=== PATIENT | male | born 1935 | race Caucasian/White ===

== ENCOUNTER → 2016-05-26 | Outpatient (CLI) | payer MEDICARE, BC ==
[~2016-05-26] VITALS: Ht 167.6 cm; Wt 81.8 kg
[~2016-05-26] MED LIST: ALEVE 220MG220 MG PO; ASPIRIN 81M81 MG/TA2 PO; B/P MED; BENICAR 20MG TA20 MG PO; BENICAR PO; CELEBREX; CENTRUM SILVER1 TAB PO; CEPHALEXIN500 M1 PO; DIOVAN 160MG160 MG PO; ENULOSE10 GM/15 M PO; FLUVASTATIN; MUCINEX 60600 MG/TA1 PO; MUCUSRELF400T PO; NAPROXEN 3375 MG/TAB; NORCO 325 MG-7.1 TAB PO; PRAVACHOL 40MG40 MG PO; PRAVASTATIN40 MG PO; PREDNISONE20 MG PO; PREVACID 30MG30 M1 PO; PROAIR HFA0.09 MG/AC IH; VENTOLIN0.09 MG IH; ZITHROMAX Z PA250 MG PO; [UNRECOGNIZED DRUG - OTHER] PO
[2016-05-26 10:04] VITALS: BP 139/90; PULSE 81
[2016-05-26 10:45] VITALS: BP 139/91; PULSE 88
== END ==
LOC: COL.RAD 09:00
DX: M54.17 Radiculopathy, lumbosacral region (principal); M54.9 Dorsalgia, unspecified; M79.605 Pain in left leg; M79.604 Pain in right leg; G89.29 Other chronic pain
CPT/HCPCS: J3301

== ENCOUNTER → 2016-08-25 | Outpatient (CLI) | payer MEDICARE, BC ==
[~2016-08-25] VITALS: Ht 167.6 cm; Wt 82.4 kg
[2016-08-25 09:52] VITALS: BP 141/83; PULSE 75
[2016-08-25 10:55] VITALS: BP 98/52; PULSE 73
[2016-08-25 11:00] VITALS: BP 140/70; PULSE 79
[2016-08-25 11:15] VITALS: BP 134/67; PULSE 74
[2016-08-25 11:30] VITALS: BP 133/72; PULSE 77
[2016-08-25 12:00] VITALS: BP 121/67; PULSE 77
== END ==
LOC: COL.RAD 09:19
DX: M43.8X6 Other specified deforming dorsopathies, lumbar region (principal); E78.00 Pure hypercholesterolemia, unspecified; I10 Essential (primary) hypertension; Z79.899 Other long term (current) drug therapy
CPT/HCPCS: Q9965

== ENCOUNTER → 2016-12-09 | Outpatient (CLI) | payer MEDICARE, BC | LOC: COL.RAD 07:45 → COL.VAS 09:00 | DX: M48.02 Spinal stenosis, cervical region (principal); R53.1 Weakness ==

== ENCOUNTER 2017-03-12 09:45 | Outpatient (RCR) | payer MEDICARE, BC | END 2017-03-15 | disposition still patient (30) | LOC: WSPT | DX: R53.1 Weakness (principal); M54.5 Low back pain; R10.30 Lower abdominal pain, unspecified; M25.552 Pain in left hip; M25.551 Pain in right hip; Z74.09 Other reduced mobility | CPT/HCPCS: G8978-GP; G8979-GP ==

== ENCOUNTER → 2017-03-31 | Outpatient (CLI) | payer MEDICARE, BC | LOC: MHCPAIN 12:25 | DX: G89.29 Other chronic pain (principal); M47.27 Other spondylosis with radiculopathy, lumbosacral region; M96.1 Postlaminectomy syndrome, not elsewhere classified; Z87.891 Personal history of nicotine dependence | CPT/HCPCS: G0463 ==

== ENCOUNTER 2017-04-12 12:30 | Outpatient (RCR) | payer MEDICARE, BC | END 2017-05-12 09:56 | disposition home or self-care (01) | LOC: WSPT 12:30 | DX: M48.061 Spinal stenosis, lumbar region without neurogenic claudication (principal); M62.81 Muscle weakness (generalized) | CPT/HCPCS: G8978-GP; G8979-GP; G8980-GP ==

== ENCOUNTER → 2017-04-22 | Outpatient (CLI) | payer MEDICARE, BC | LOC: MHCPAIN 07:56 | DX: M47.27 Other spondylosis with radiculopathy, lumbosacral region (principal); M99.83 Other biomechanical lesions of lumbar region; M96.1 Postlaminectomy syndrome, not elsewhere classified; Z98.1 Arthrodesis status | CPT/HCPCS: J1100; Q9967 ==

== ENCOUNTER → 2017-05-04 | Outpatient (CLI) | payer MEDICARE, BC | LOC: MHCPAIN 08:50 | DX: G89.29 Other chronic pain (principal); M47.27 Other spondylosis with radiculopathy, lumbosacral region; M53.3 Sacrococcygeal disorders, not elsewhere classified; M96.1 Postlaminectomy syndrome, not elsewhere classified; Z87.891 Personal history of nicotine dependence | CPT/HCPCS: G0463 ==

== ENCOUNTER → 2017-07-05 | Outpatient (CLI) | payer MEDICARE, BC | LOC: MHCPAIN 08:00 | DX: G89.29 Other chronic pain (principal); M47.27 Other spondylosis with radiculopathy, lumbosacral region; M53.3 Sacrococcygeal disorders, not elsewhere classified; M96.1 Postlaminectomy syndrome, not elsewhere classified | CPT/HCPCS: G0463 ==

== ENCOUNTER → 2017-07-22 | Outpatient (CLI) | payer MEDICARE, BC | LOC: MHCPAIN 08:06 | DX: M47.27 Other spondylosis with radiculopathy, lumbosacral region (principal); M48.061 Spinal stenosis, lumbar region without neurogenic claudication; M96.1 Postlaminectomy syndrome, not elsewhere classified | CPT/HCPCS: J1100; Q9967 ==

== ENCOUNTER → 2017-08-23 | Outpatient (CLI) | payer MEDICARE, BC | LOC: MHCPAIN 09:39 | DX: G89.29 Other chronic pain (principal); M47.817 Spondylosis without myelopathy or radiculopathy, lumbosacral region; M54.16 Radiculopathy, lumbar region; M53.3 Sacrococcygeal disorders, not elsewhere classified; M96.1 Postlaminectomy syndrome, not elsewhere classified | CPT/HCPCS: G0463 ==

== ENCOUNTER → 2017-11-17 | Outpatient (CLI) | payer MEDICARE, BC | LOC: MHCPAIN 07:55 | DX: G89.29 Other chronic pain (principal); M47.817 Spondylosis without myelopathy or radiculopathy, lumbosacral region; M54.16 Radiculopathy, lumbar region; M53.3 Sacrococcygeal disorders, not elsewhere classified; M96.1 Postlaminectomy syndrome, not elsewhere classified | CPT/HCPCS: G0463 ==

== ENCOUNTER → 2017-11-29 | Outpatient (CLI) | payer MEDICARE, BC | LOC: MHCPAIN 13:15 | DX: M47.817 Spondylosis without myelopathy or radiculopathy, lumbosacral region (principal); M48.061 Spinal stenosis, lumbar region without neurogenic claudication; M96.1 Postlaminectomy syndrome, not elsewhere classified | CPT/HCPCS: J1100; Q9967 ==

== ENCOUNTER → 2017-12-27 | Outpatient (CLI) | payer MEDICARE, BC | LOC: MHCPAIN 10:04 | DX: G89.29 Other chronic pain (principal); M47.817 Spondylosis without myelopathy or radiculopathy, lumbosacral region; M54.16 Radiculopathy, lumbar region; M53.3 Sacrococcygeal disorders, not elsewhere classified; M96.1 Postlaminectomy syndrome, not elsewhere classified | CPT/HCPCS: G0463 ==

== ENCOUNTER → 2018-02-28 | Outpatient (CLI) | payer MEDICARE, BC | LOC: MHCPAIN 10:07 | DX: G89.29 Other chronic pain (principal); M47.817 Spondylosis without myelopathy or radiculopathy, lumbosacral region; M54.16 Radiculopathy, lumbar region; M53.3 Sacrococcygeal disorders, not elsewhere classified; M96.1 Postlaminectomy syndrome, not elsewhere classified | CPT/HCPCS: G0463 ==

== ENCOUNTER → 2018-03-10 | Outpatient (CLI) | payer MEDICARE, BC | LOC: MHCPAIN 08:08 | DX: M47.817 Spondylosis without myelopathy or radiculopathy, lumbosacral region (principal); M54.16 Radiculopathy, lumbar region | CPT/HCPCS: J1100; Q9967 ==

== ENCOUNTER → 2018-04-11 | Outpatient (CLI) | payer MEDICARE, BC | LOC: MHCPAIN 08:54 | DX: G89.29 Other chronic pain (principal); M47.817 Spondylosis without myelopathy or radiculopathy, lumbosacral region; M54.16 Radiculopathy, lumbar region; M53.3 Sacrococcygeal disorders, not elsewhere classified; M96.1 Postlaminectomy syndrome, not elsewhere classified | CPT/HCPCS: G0463 ==

== ENCOUNTER → 2018-07-11 | Outpatient (CLI) | payer MEDICARE, BC | LOC: MHCPAIN 09:04 | DX: G89.29 Other chronic pain (principal); M47.817 Spondylosis without myelopathy or radiculopathy, lumbosacral region; M54.16 Radiculopathy, lumbar region; M53.3 Sacrococcygeal disorders, not elsewhere classified; M96.1 Postlaminectomy syndrome, not elsewhere classified | CPT/HCPCS: G0463 ==

== ENCOUNTER → 2018-10-12 | Outpatient (CLI) | payer MEDICARE, BC | LOC: MHCPAIN 08:01 | DX: G89.29 Other chronic pain (principal); M47.817 Spondylosis without myelopathy or radiculopathy, lumbosacral region; M54.16 Radiculopathy, lumbar region; M53.3 Sacrococcygeal disorders, not elsewhere classified; M96.1 Postlaminectomy syndrome, not elsewhere classified; R51 Headache | CPT/HCPCS: G0463 ==

== ENCOUNTER 2019-03-29 09:22 | Emergency (ER) | payer MEDICARE, BC ==
[~2019-03-29] VITALS: Ht 165.1 cm; Wt 81.8 kg
[2019-03-29 10:25] LABS: BASO % 0.5 % (0.0-2.0); EOS # 0.2 (0.0-0.7); EOS % 3.3 % (0-4.0); GRAN # 3.4 (1.4-6.5); GRAN % 61.9 % (42.2-75.2); HEMATOCRIT 37.9 % (42.0-52.0); LYMPH # 1.3 (1.2-3.4); LYMPH % 23.2 % (20.0-51.0); MEAN CELL VOLUME 91 fl (80.0-100.0); MEAN CORPUSCULAR HEMOGLOBIN 31 pg (27.0-31.0); MEAN CORPUSCULAR HGB CONC 34 g/dl (33.0-37.0); MEAN PLATELET VOLUME 9.7 fl (7.4-10.4); MONO # 0.6 (0.1-0.6); MONO % 10.9 % (1.7-9.3); PLATELET COUNT 198 K/mm3 (130-400); RED BLOOD COUNT 4.16 M/mm3 (4.20-5.60); REDCELL DISTRIBUTION WIDTH-CV 12.5 % (11.5-14.5)
[2019-03-29 10:35] LABS: ALANINE AMINOTRANSFERASE 17 U/L (21-72); ALBUMIN 4.3 gm/dL (3.5-5.0); ALKALINE PHOSPHATASE 67 U/L (50-136); ANION GAP 8 mmol/L (7-16); AST,SGOT 24 U/L (15-37); BILIRUBIN,TOTAL 0.9 mg/dL (0.0-1.0); BLOOD UREA NITROGEN 22 mg/dL (9-20); C-REACTIVE PROTEIN < 0.5 mg/dL (0.0-0.9); CALCIUM 9.2 mg/dL (8.4-10.2); CARBON DIOXIDE 26 mmol/L (22-30); CHLORIDE 100 mmol/L (98-107); CREATININE, serum 1.24 (0.66-1.25); GLUCOSE 92 mg/dL (74-106); LIPASE 85 U/L (23-300); POTASSIUM 4.5 mmol/L (3.4-5.0); SODIUM 134 mmol/L (137-145); TOTAL PROTEIN 6.9 gm/dL (6.4-8.2)
[2019-03-29 10:44] LABS: TROPONIN-I 0.015 ng/mL (0.000-0.035)
[2019-03-29 13:45] VITALS: BP 141/77; PULSE 71; TEMP 98.5
--- NOTE | 2019-03-29 13:47 | NUR ---
LUNA iyer responded to a social director consult to the ED. The nurse reported the patient's was confused and asked where the bathroom was twice. The nurse also reports the patient and the patient's were arguementative. The patient informed the nurse and ED doctor that he fired his PCP, Dr. Jackson. LUNA met with the patient and his , Winsome. The patient and his live in [place]. The patient has a cane and walker, if needed. They have a walk-in shower. The patient has two children Anatoly and Halie Alex . LUNA iyer provided a list of providers in [place]. The patient reports he will probably go back to Dr. Jackson. LUNA contacted Dr. Jackson's nurse, Lucina. Lucina reports that the patient does have a dementia diagnosis and the patient's does not. However, Lcuina does report the patient's is an anxious person and has stress because the patient's also cares for her son, Anatoly who recently had a stroke. Lucina reports that the patient's could use some time to herself and that the patient and patient's do argue. The patient and his left before student could speak to the patient's about options. LUNA iyer contacted the patient's daughter to provide information on [facility] for the patient and the patient's . The daughter took down the information and will speak to her mother about it. LUNA collaborated the above information with the patient's nurse.
== END 2019-03-29 13:45 | disposition home or self-care (01) ==
LOC: COL.ER 09:22
PROVIDERS: Emergency Medicine
DX: I49.3 Ventricular premature depolarization (principal); R07.89 Other chest pain; M54.2 Cervicalgia; Z79.82 Long term (current) use of aspirin

== ENCOUNTER → 2020-01-18 | Outpatient (CLI) | payer MEDICARE, BC | LOC: COL.RAD 14:00 | DX: G31.9 Degenerative disease of nervous system, unspecified (principal); I67.82 Cerebral ischemia; S12.112A Nondisplaced Type II dens fracture, initial encounter for closed fracture; M50.30 Other cervical disc degeneration, unspecified cervical region ==

== ENCOUNTER 2020-01-20 12:36 | Inpatient (IN) | payer MEDICARE, BC ==
[~2020-01-20] VITALS: Ht 170.2 cm; Wt 78.3 kg
[2020-01-20] MEDS ORDERED: CELEXA10 MG PO (13:11)
[2020-01-20] MEDS ORDERED: MICARDIS40 MG PO (13:12)
[2020-01-20 13:19] LABS: BASO % 0.7 % (0.0-2.0); EOS # 0.2 (0.0-0.7); EOS % 2.8 % (0-4.0); GRAN # 3.4 (1.4-6.5); HEMOGLOBIN 12.5 g/dl (13.5-18.0); LYMPH # 0.8 (1.2-3.4); MEAN CELL VOLUME 90 fl (80.0-100.0); MEAN CORPUSCULAR HEMOGLOBIN 31 pg (27.0-31.0); MEAN CORPUSCULAR HGB CONC 34 g/dl (33.0-37.0); MEAN PLATELET VOLUME 9.7 fl (7.4-10.4); MONO % 18.3 % (1.7-9.3); PLATELET COUNT 168 K/mm3 (130-400); RED BLOOD COUNT 4.08 M/mm3 (4.20-5.60); REDCELL DISTRIBUTION WIDTH-CV 12.6 % (11.5-14.5)
[2020-01-20 13:23] LABS: HEMATOCRIT 36.5 % (42.0-52.0)
[2020-01-20 13:27] LABS: ALBUMIN 3.7 gm/dL (3.5-5.0); BILIRUBIN,TOTAL 0.7 mg/dL (0.0-1.0); C-REACTIVE PROTEIN 1.2 mg/dL (0.0-0.9); CALCIUM 8.6 mg/dL (8.4-10.2); CREATININE, serum 0.99 (0.66-1.25); MAGNESIUM 1.9 mg/dL (1.6-2.3); POTASSIUM 4.4 mmol/L (3.4-5.0); TOTAL PROTEIN 6.2 gm/dL (6.4-8.2)
[2020-01-20 13:39] LABS: TROPONIN-I 0.073 ng/mL (0.000-0.035)
[2020-01-20 14:49] LABS: COLLECTION METHOD CLEAN CATCH
[2020-01-20 14:55] LABS: MUCOUS Present /lpf; PH 6 (5-8); SQUAMOUS EPITHELIAL None Seen /hpf; URINE APPEARANCE Clear; URINE BACTERIA None Seen /hpf; URINE BILIRUBIN Negative (NEGATIVE); URINE BLOOD 1+ (NEGATIVE); URINE COLOR Yellow; URINE GLUCOSE Negative (NEGATIVE); URINE KETONE Trace (NEGATIVE); URINE LEUKOCYTE ESTERASE Negative (NEGATIVE); URINE NITRATE Negative (NEGATIVE); URINE PROTEIN(semi-quant) Negative (NEGATIVE); URINE RBC 0-2 /hpf; URINE UROBILINOGEN Negative (NEGATIVE)
[2020-01-20 18:31] VITALS: BP 117/41; PULSE 88; TEMP 98.1
--- NOTE | 2020-01-20 18:58 | NUR ---
Wallet placed in HS safe.
--- NOTE | 2020-01-20 19:25 | NUR ---
Pt arrived to floora t 1800, resting in bed with alarm in place. During shift report at 1900 out at desk repeatedly regarding questions, upon arriving into room pt did not want to be touched or do any medications, able to get ear drops in ear and pt is intermittetnly agreeable. at bedside unable to grasp visitor policy despite multiple attempts, escorted to door by surigcal staff. Pt in room, setting off bed alarm already this evening and difficult to get patient to cooperate. Bedside shift report given to CHERELLE Tapia who will resume care.
[2020-01-20 19:28] VITALS: BP 162/70; PULSE 88; TEMP 97.8
[2020-01-20 23:04] VITALS: BP 141/71; PULSE 42; TEMP 98.2
--- NOTE | 2020-01-21 00:47 | NUR ---
Pt assessment completed, charted, roomair. Pt is confused and is not being cooperative. Trying to get up and pull his IV line. Provided PRN sleep medication/melatonin as per JUL, does not seem helpful. Helped him settled on bed, call light on reach. No further needs at this time. Will keep monitoring.
[2020-01-21 04:00] VITALS: BP 140/80; PULSE 74; TEMP 99.7
--- NOTE | 2020-01-21 05:28 | NUR ---
Pt slept on and off through out the night. Was trying to get up and go out of his bed, convinced to stay on bed after repeated explanation. No further needs at this time.
[2020-01-21 08:14] LABS: BASO % 0.7 % (0.0-2.0); EOS # 0.1 (0.0-0.7); EOS % 2.6 % (0-4.0); GRAN # 2.7 (1.4-6.5); GRAN % 60.2 % (42.2-75.2); HEMOGLOBIN 11.5 g/dl (13.5-18.0); LYMPH # 0.8 (1.2-3.4); LYMPH % 16.7 % (20.0-51.0); MEAN CELL VOLUME 88 fl (80.0-100.0); MEAN CORPUSCULAR HEMOGLOBIN 31 pg (27.0-31.0); MEAN CORPUSCULAR HGB CONC 35 g/dl (33.0-37.0); MEAN PLATELET VOLUME 9.8 fl (7.4-10.4); MONO # 0.9 (0.1-0.6); MONO % 19.6 % (1.7-9.3); PLATELET COUNT 149 K/mm3 (130-400); RED BLOOD COUNT 3.73 M/mm3 (4.20-5.60); REDCELL DISTRIBUTION WIDTH-CV 12.3 % (11.5-14.5)
[2020-01-21 08:20] LABS: CALCIUM 8.1 mg/dL (8.4-10.2); CREATININE, serum 0.84 (0.66-1.25); POTASSIUM 3.9 mmol/L (3.4-5.0)
[2020-01-21 08:27] LABS: HEMATOCRIT 32.8 % (42.0-52.0)
[2020-01-21 09:22] VITALS: BP 162/55; PULSE 41; TEMP 98.1
--- NOTE | 2020-01-21 10:15 | NUR ---
Patient resting in bed. He is confused. He can state his name. Does not know his birthday, the date or the president. Patient Winsome called multiple times this am 5 times total, the same questions asked. She came to visit her spouse briefly, she spoke with social work. Patient had to be escorted out, because she got lost on her way to the room. Patient daughter was also spoken to by social work. seems very forgetful. try to review the plan of care with her. Patient had breakfast, but overall, sleepy. He did not sleep well over night.
--- NOTE | 2020-01-21 10:31 | NUR ---
SW contated by nurse to assist patient and his spouse. Nurse Dee concerned about patient and wifes forgetfulness and concern of care. MAGDALENA met with patient and spouse Winsome [phone]. Winsome stated that she would prefer for SW to call daughter Halie to obtain any information needed due to her forgetfulness. Daughter Halie's number is [phone]. SW called daughter to obtain intake information as well as speak about concern of spouses safety at home. Daughter states that patient lives at home with his spouse Winsome in [place], PCP is Dr. Fercho Jackson, and that he is able to afford his medications. Daughter states that patient utilizes a cane every occasionally, and that he is independent with ADL's. Daughter provides that she will be bringing up the DPOA-HC document today that lists spouse Winsome first and alt-DPOC-HC daugher Winsome. Document will be copied and left in chart when brought up by daughter. SW inquired about the well-being of patient's Winsome at home. Daughter states that her mother will be fine at home alone with driving, cooking cleaning, etc. Daughter states that Winsome gets worried when carring for patient. SW asked if the patient and spouse obtain any home health services. Daughter states patient and spouse refuse home health services or any services from outside of home. Daughter states that she feels that patient will be fine when dcing home due to the couple taking care of themselves. Daughter states that she and her family look after patient and spouse to ensure they have what they needed when they are at home. Daughter states that she is going out of town until to [place]. Daughter provides that she can be reached while she is out of town for anything that will be needed. She also wanted to provide her husbands name and number if anything is needed while she is out of town. Gabriel Gomez [phone]. MAGDALENA will continue to follow.
[2020-01-21 12:00] VITALS: BP 144/51; PULSE 45; TEMP 98.1
--- NOTE | 2020-01-21 12:15 | NUR ---
Dr. Godfrye rounded, he has seen an improvment in patient sweling & reddness. He was able to look in patients ear with otoscope. Wound culture collected per verbal order. We reenforced the importance of c collar, c collar on & tyelnol given for pain & discomfort.
--- NOTE | 2020-01-21 14:26 | NUR ---
MAGDALENA obtained copies of DPOA-HC documentation from daughter Halie Gomez. SW placed copies of documenation in patient chart.
[2020-01-21 15:08] LABS: COLLECTION METHOD CLEAN CATCH
[2020-01-21 15:17] LABS: MUCOUS Present /lpf; PH 5 (5-8); SQUAMOUS EPITHELIAL None Seen /hpf; URINE APPEARANCE Hazy; URINE BACTERIA None Seen /hpf; URINE BILIRUBIN Negative (NEGATIVE); URINE BLOOD Negative (NEGATIVE); URINE COLOR Yellow; URINE GLUCOSE Negative (NEGATIVE); URINE KETONE 1+ (NEGATIVE); URINE LEUKOCYTE ESTERASE Negative (NEGATIVE); URINE NITRATE Negative (NEGATIVE); URINE PROTEIN(semi-quant) Negative (NEGATIVE); URINE RBC 0-2 /hpf; URINE UROBILINOGEN Negative (NEGATIVE)
--- NOTE | 2020-01-21 15:22 | NUR ---
Urine collected and sent to lab at 2:55 PM.
[2020-01-21 16:00] VITALS: BP 149/53; PULSE 92; TEMP 98.2
--- NOTE | 2020-01-21 17:58 | NUR ---
Suzanne sat at edge of bed. Minimal interest in dinner. He did have ice cream. patient was up to the bathroom & voided. Patient assisted with bed bath & fresh linens. Spoke again to patients on the phone & gave her an update on the day. Patient is hard of hearing making communication difficult at times. His pain seems better today after tyelnol, he has been able to tolerate the c collar. Int. High fall risk protocol followed.
--- NOTE | 2020-01-21 18:56 | NUR ---
Patient had taken c collar off. Patient given tylenol & placed c collar back on. tylenol for pain relief. Bedside report to Tri.
[2020-01-21 19:46] VITALS: BP 139/56; PULSE 54; TEMP 98.1
--- NOTE | 2020-01-21 20:00 | NUR ---
Assessment complete. Patient is confused and hard of hearing. Shingles lesions are visible on patient's left ear, neck and left shoulder. He mentions he is hurting and Tylenol is adminsitered. The lesions are draining a yellow fluid. Patient ambulates with standby assistance to the restroom. He is breathing and satting well on RA. Hand client support consultant are strong and equal. Will continue to monitor.
[2020-01-22] VITALS (7 sets, daily range): BP systolic 135–159; BP diastolic 53–74; PULSE 42–58; TEMP 97.7–98.8
[2020-01-22 06:55] LABS: BASO % 0.6 % (0.0-2.0); EOS # 0.2 (0.0-0.7); EOS % 3.4 % (0-4.0); GRAN # 3.7 (1.4-6.5); GRAN % 60.3 % (42.2-75.2); HEMOGLOBIN 12.6 g/dl (13.5-18.0); LYMPH # 1.1 (1.2-3.4); LYMPH % 17.5 % (20.0-51.0); MEAN CELL VOLUME 86 fl (80.0-100.0); MEAN CORPUSCULAR HEMOGLOBIN 31 pg (27.0-31.0); MEAN CORPUSCULAR HGB CONC 36 g/dl (33.0-37.0); MEAN PLATELET VOLUME 9.8 fl (7.4-10.4); MONO # 1.1 (0.1-0.6); PLATELET COUNT 156 K/mm3 (130-400); REDCELL DISTRIBUTION WIDTH-CV 12.2 % (11.5-14.5)
[2020-01-22 06:57] LABS: HEMATOCRIT 35.4 % (42.0-52.0)
[2020-01-22 07:07] LABS: CREATININE, serum 0.83 (0.66-1.25); POTASSIUM 3.9 mmol/L (3.4-5.0)
--- NOTE | 2020-01-22 08:00 | NUR ---
PATIENT IS ALERT BUT CONFUSED. PATIENT HAS HX OF DEMENTIA. NOTED SHINGLES TO LEFT SIDE OF FACE AND IN EAR, DROPS INSTILLED. PATIENT FREQUENTLY TAKES OFF HIS C-COLAR. & DAUGHTER CONFIRMED THEY HAVE ALSO BEEN HAVING DIFFICULTY WITH HIM KEEPING IT ON. PATIENT HAS BEEN HAVING FREQUENT FALLS AT HOME AND & DAUGHTER ARE INTERESTED IN SKILLED PLACEMENT. NEURO CHECKS WNL. VSS. HR IN THE 50'S ON TELE. HEAD TO TOE ASSESSMENT COMPLETE. AM MEDS GIVEN. BREAKFAST TRAY AT BEDSIDE. PATIENT ASSISTED INTO BEDSIDE CHAIR WITH CHAIR ALARM INPLACE. NO OTHER NEEDS AT THIS TIME. CALL LIGHT IN REACH.
--- NOTE | 2020-01-22 10:55 | NUR ---
HOSPITALIST TEAM ROUNDING, SEE ORDERS.
--- NOTE | 2020-01-22 11:00 | NUR ---
AT BEDSIDE AND SEEMS TO BE VERY FORGETFUL. ASKS A LOT OF THE SAME QUESTIONS AND SEEMS TO HAVE SOME DIFFICULTY WITH REMEMBERING WHO SHE TALKED WITH AND EVERYTHING DISCUSSED. DAUGHTER IS AWARE, PLAN IS FOR PLACEMENT FOR THE PATIENT.
--- NOTE | 2020-01-22 18:50 | NUR ---
CHANGE OF SHIFT REPORT RECEIVED FROM DAY SHIFT NURSE. BED ALARM ON. PATIENT CONTINUES IN CONTACT ISOLATION FOR SHINGLES. PATIENT CONTINUES TO NOT WEAR C-COLLAR, DESPITE FREQUENT REMINDERS FOR NEED TO WEAR C-COLLAR FOR C2 FX.
--- NOTE | 2020-01-22 19:38 | NUR ---
PATIENT AGREED TO WEAR C-COLLAR TO BATHROOM AND WHEN PUT BACK TO BED AT THIS TIME. BED ALARM ON. STATED HE PASS STOOL AFTER VOIDING.
[2020-01-22 21:37] LABS: CALCIUM 7.8 mg/dL (8.4-10.2); CREATININE, serum 0.91 (0.66-1.25); POTASSIUM 3.7 mmol/L (3.4-5.0)
--- NOTE | 2020-01-22 22:00 | NUR ---
PATIENT NOT COOPERATIVE WITH NURSING STAFF, STATING HE IS WANTING TO GO HOME, THAT HE HAS NO ONE TO GO HOME TOO, THAT HIS FAMILY WOULD NOT CARE IF HE WAS INJURED FROM WORSENING CERVICAL NECK FX OR EAR INFECTION. DID NOT WANT TO COOPERATE TO HAVE IV FLUIDS STARTED AT THIS TIME. PRESCHOOL ADVISER SITTING WITH PATIENT TO ENSURE SAFETY AND NO ELOPEMENT UNTIL PATIENT LAYS DOWN TO REST.
--- NOTE | 2020-01-23 00:37 | NUR ---
PATIENT LAYING IN BED, RESTING WITH EYES CLOSED, AWAKENS WITH NAME CALLED AND IS COOPERATIVE WITH NURSING TO HAVE MEDS GIVEN, IV FLUIDS ADDED TO IV SITE, IV MEDS GIVEN SCHEDULED. BED ALARM ON.
--- NOTE | 2020-01-23 03:30 | NUR ---
PATIENT HAS GOTTEN OUT OF BED, SETTING OFF BED ALARM, NOT ANSWERING QUESTIONS OF WHAT HIS REQUESTS ARE, WHAT ARE HIS NEEDS BUT WITH REPEATED QUESTIONS, PATIENT WOULD STATE HE NEEDED TO USE THE TOILET. OBSERVED GAIT UNSTEADY, GAIT BELT USED MOST TIMES IF PATIENT COOPERATIVE, MOST TIMES PATIENT DOES NOT ALLOW GAIT BELT TO BE USED, DESPITE PATIENT BEING INFORMED GAIT BELT USE FOR PATIENT'S SAFETY. TELE REMAINS IN PLACE, PATIENT DENIES ANY DISCOMFORT WHEN AWAKE AND INTERACTING WITH STAFF. BED ALARM ON WHEN PATIENT BACK IN BED.
[2020-01-23 03:38] VITALS: BP 145/62; PULSE 44; TEMP 97.3
[2020-01-23 06:23] LABS: BASO % 0.4 % (0.0-2.0); EOS # 0.2 (0.0-0.7); EOS % 3.6 % (0-4.0); GRAN % 59.9 % (42.2-75.2); HEMOGLOBIN 11.3 g/dl (13.5-18.0); LYMPH % 20.3 % (20.0-51.0); MEAN CELL VOLUME 86 fl (80.0-100.0); MEAN CORPUSCULAR HEMOGLOBIN 31 pg (27.0-31.0); MEAN CORPUSCULAR HGB CONC 35 g/dl (33.0-37.0); MEAN PLATELET VOLUME 9.2 fl (7.4-10.4); MONO # 0.8 (0.1-0.6); MONO % 15.4 % (1.7-9.3); PLATELET COUNT 148 K/mm3 (130-400); RED BLOOD COUNT 3.69 M/mm3 (4.20-5.60); REDCELL DISTRIBUTION WIDTH-CV 12.1 % (11.5-14.5)
[2020-01-23 06:27] LABS: HEMATOCRIT 31.9 % (42.0-52.0)
--- NOTE | 2020-01-23 07:28 | NUR ---
CHANGE OF SHIFT REPORT GIVEN TO DAY SHIFT NURSENEAL. BED ALARM ON.
[2020-01-23 07:45] VITALS: BP 156/49; PULSE 41; TEMP 97.4
--- NOTE | 2020-01-23 10:35 | NUR ---
PT/OT are recommending SNF for the patient. MAGDALENA met with the patient to discuss this. The patient appeared confused and was not able to answer questions. MAGDALENA then contacted the patient's daughter, Halie, to review therapy's recommendation. Halie reports that the patient does have dementia. Halie reports that she would be agreeable to post-acute rehab for the patient and preferred 1) [facility] 2) [facility]. Halie reports that she will be returning back to [place] on . MAGDALENA contacted and faxed a referral to both facilities. SW awaiting their screens. SW to ask the hospitalist for a COVID test to be ordered.
[2020-01-23 11:52] VITALS: BP 148/58; PULSE 41; TEMP 97.6
--- NOTE | 2020-01-23 14:42 | NUR ---
The patient's , Winsome, arrived to the hospital. SW updated her on the plan and her daughter's preferences for SNF. Winsome was agreeable to the plan. She states that the patient has some friends at [facility] and that they may be interested in SNF there. She asked that MAGDALENA go ahead and send a referral to [facility] as well. MAGDALENA contacted and faxed a referral to Jorge at [facility].
[2020-01-23 16:06] VITALS: BP 140/83; PULSE 48; TEMP 98.6
--- NOTE | 2020-01-23 17:25 | NUR ---
PATIENT CAUGHT GETTING UP, BED ALARM GOING OFF, NURSING STAFF RAN TO ROOM AND AVOIDED FALL. PATIENT HAS DEMENTIA BUT IS ABLE TO GET UP AND MOVE QUICKLY. GONE FOR THE NIGHT. FREIGHT MANAGER AT BEDSIDE.
[2020-01-23 19:01] LABS: CALCIUM 7.8 mg/dL (8.4-10.2); CREATININE, serum 0.94 (0.66-1.25)
--- NOTE | 2020-01-23 19:10 | NUR ---
PATIENT SETTING OFF BED ALARM AGAIN. PATIENT IS ON HIS FEET WALKING BY THE TIME NURSING RUNS IN. PATIENT NOW SITTING IN BEDSIDE CHAIR WITH CHAIR ALARM ON. CALL LIGHT IN REACH. HIGH FALL RISK. RN AT BEDSIDE DOING BEDSIDE SHIFT REPORT.
[2020-01-23 19:39] VITALS: BP 156/80; PULSE 63; TEMP 98.6
--- NOTE | 2020-01-23 22:00 | NUR ---
PT IN BED, HAS BEEN IMPULSIVE AND SETS OFF BED ALARM. TAKES HS MEDS WITHOUT PROBLEM AND EAR DROPS GIVEN IN LEFT EAR. LEFT EAR IS LESS SWOLLEN, HAS LESIONS NOTED BEHIND EAR AND PARTIALLY DOWN NECK AND IN TO SCALP. DENIES PAIN. IS ALERT TO SELF AND CITY WHERE HE IS. IV 3% SALINE INFUSING TO LEFT FOREARM SITE AT 30CC/HR.
[2020-01-23 23:02] VITALS: BP 152/99; PULSE 47; TEMP 97.4
--- NOTE | 2020-01-24 01:20 | NUR ---
STARTED SECOND IV SITE FOR MEDS TO LEFT UPPER FOREARM, #20 INSYTE ON FIRST ATTEMPT.
[2020-01-24 02:51] VITALS: BP 152/49; PULSE 92; TEMP 97.7
--- NOTE | 2020-01-24 06:05 | NUR ---
COVID SWAB OBTAINED FOR PLACEMENT. PT TAKES AM MEDS WITH GATORADE. 3% SALINE INFUSING WITHOUT PROBLEM.
[2020-01-24 06:51] LABS: CALCIUM 7.8 mg/dL (8.4-10.2); CREATININE, serum 0.9 (0.66-1.25); MAGNESIUM 1.6 mg/dL (1.6-2.3); POTASSIUM 3.4 mmol/L (3.4-5.0)
[2020-01-24 06:59] VITALS: BP 174/84; BP 193/104; PULSE 92; TEMP 98.4
--- NOTE | 2020-01-24 09:27 | NUR ---
Jorge, at [facility], reports that they are unable to accept the patient.
--- NOTE | 2020-01-24 11:00 | NUR ---
Patient has been sitting up in the chair most the morning. He is very confused and constantly tries to get up. He keeps saying he has to use the bathroom but voids a little at a time than lays back down. The shingles are mostly scabbed over but the ones to his ches and back of the neck are open. He keeps picking at them. He denies pain or nausea. Reminded him he can not have water, only gatorade. No other changes at this time. Call light mar lyn. Bed/chair alarm turned on.
[2020-01-24 11:34] VITALS: BP 168/60; PULSE 71; TEMP 98
--- NOTE | 2020-01-24 14:41 | NUR ---
Christie, at [facility], reports that they are declining the patient. SW to update the patient's daughter and .
[2020-01-24 16:00] VITALS: BP 170/84; PULSE 77; TEMP 98.8
--- NOTE | 2020-01-24 18:45 | NUR ---
Patient continues to be very confused. He has been attempting to get up every 15-30 mins this afternoon. He did not want to eat very much of his dinner. Denies pain or nausea. He slightly more steady on his feet than he was this morning but needs a lot of cues/reminders. No other changes at this time. Call light within reach.
[2020-01-24 19:55] VITALS: BP 154/99; PULSE 58; TEMP 97.8
--- NOTE | 2020-01-24 20:00 | NUR ---
PT IS ALERT AND ORIENTED X2. PLEASANTLY CONFUSED. 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 LESIONS ARE DRYING AND FLAKING. HAS IV TO LEFT FOREARM, AND SL TO UPPER LEFT FOREARM, BOTH FLUSH WELL. IS IMPULSIVE WHEN NEEDING TO USE THE BATHROOM. HARD OF HEARING IN LEFT EAR. REFUSES TO WEAR C-COLLAR.
[2020-01-25 03:44] VITALS: BP 150/95; PULSE 43; TEMP 98.8
--- NOTE | 2020-01-25 06:00 | NUR ---
Pt has been impulsive with activity, steady on his feet. IVF continue to left forearm. Encouraged to not pick at his lesions around his ear.
[2020-01-25 07:15] LABS: BASO % 0.6 % (0.0-2.0); EOS # 0.4 (0.0-0.7); EOS % 5.2 % (0-4.0); GRAN # 4.8 (1.4-6.5); GRAN % 69.1 % (42.2-75.2); HEMATOCRIT 33.4 % (42.0-52.0); HEMOGLOBIN 11.7 g/dl (13.5-18.0); LYMPH % 15.1 % (20.0-51.0); MEAN CELL VOLUME 88 fl (80.0-100.0); MEAN CORPUSCULAR HEMOGLOBIN 31 pg (27.0-31.0); MEAN CORPUSCULAR HGB CONC 35 g/dl (33.0-37.0); MEAN PLATELET VOLUME 9.3 fl (7.4-10.4); MONO # 0.7 (0.1-0.6); MONO % 9.7 % (1.7-9.3); PLATELET COUNT 183 K/mm3 (130-400); REDCELL DISTRIBUTION WIDTH-CV 12.4 % (11.5-14.5)
[2020-01-25 07:32] LABS: CREATININE, serum 0.83 (0.66-1.25); POTASSIUM 3.6 mmol/L (3.4-5.0)
[2020-01-25 08:28] VITALS: BP 148/121; PULSE 78; TEMP 97.9
--- NOTE | 2020-01-25 09:03 | NUR ---
Initial visit; Patient in Isolation, [employer] spoke with him from doorway, offering encouragement and God's blessings. [employer] will keep Boby in her prayers.
--- NOTE | 2020-01-25 09:58 | NUR ---
Linus, at [facility], reports that they are unable to accept the patient. SW contacted the patient's , Winsome, and daughter, Halie, and updated them on the referrals and discussed sending referrals to other facilities. Winsome and Halie were agreeable to sending referrals and for the patient to go to the facility that accepts him. MAGDALENA contacted and faxed a referral to [facility], [facility], [place], [facility], [facility], and [facility]. [facility] reports that they are full right now. SW awaiting other screens.
--- NOTE | 2020-01-25 11:30 | NUR ---
Patient will be discharging this afternoon. His confusion is better today. He is not trying to get up as often. He only tries to get up to void. His gait is more steady as well. No complaints of pain or nausea. His shingles are crusting over and are dry. He needs reminders to no scrtch them or pick at them. He still needs a lot of reminders to wear his brace. He stated the brace makes his ear sore and his neck irritated. No other changes at this time. Call light within reach.
[2020-01-25 12:00] VITALS: BP 148/121; PULSE 78; TEMP 97.9
--- NOTE | 2020-01-25 12:02 | NUR ---
Sandy, at [facility], reports that they do not have a bed available at this time.
[2020-01-25] MEDS ORDERED: VALTREX1 GM PO (12:05)
[2020-01-25] MEDS ORDERED: CIPRODEX OT (12:13)
[2020-01-25] MEDS ORDERED: TYLENOL 325MG325 MG PO (12:14)
--- NOTE | 2020-01-25 12:26 | NUR ---
Patient wallet retrieved from safe, and given to CHERELLE Tolbert.
[2020-01-25 13:17] VITALS: BP 166/66; PULSE 83; TEMP 97.6
--- NOTE | 2020-01-25 14:41 | NUR ---
Cori, at [facility], reports that they are able to accept the patient. MAGDALENA contacted the patient's daughter, Halie, to inform. Halie reports that she really does not want the patient going there and would prefer to wait until somewhere else could take. Ambrocio, at [facility], reports that they are able to take the patient. MAGDALENA informed the patient's , Winsome. Winsome reports that her and the patient used to live in [place] and they would prefer there. MAGDALENA contacted and updated Halie. Halie prefers [place] too and is agreeable with the patient going there. MAGDALENA attempted to contact Cori back at [place] to update. SW left her a voicemail. The patient is to discharge today, 01/24, to [facility] for a skilled stay. Transportation was scheduled at 1430, via [place]. MAGDALENA informed the patient's , daughter, and RN. They were all agreeable to the time. MAGDALENA also presented and read the IM form outloud to the patient's , Winsome. Winsome verbalized understanding and gave SW approval to sign the form on her behalf. MAGDALENA provided her with a copy. No additional needs at this time.
--- NOTE | 2020-01-25 15:05 | NUR ---
Patient is discharging to [facility]. His was here and his wallet was sent home with her. We counted the money and there was $361.00. Also sent his clothing home with her, they were soiled. She is going to pack a bag and deliver it to the care home tomorrow. Report called. Patient walked out by [employer]. Info packet sent with patient.
== END 2020-01-25 15:07 | DRG 73 ==
LOC: COL.ER 12:36 → SURG 15:56
PROVIDERS: Emergency Medicine; Internal Medicine; Physician Assistant
DX: B02.21 Postherpetic geniculate ganglionitis (principal); G93.41 Metabolic encephalopathy; S12.110A Anterior displaced Type II dens fracture, initial encounter for closed fracture; E87.1 Hypo-osmolality and hyponatremia; E78.5 Hyperlipidemia, unspecified; I10 Essential (primary) hypertension; Z91.81 History of falling; Z79.82 Long term (current) use of aspirin; Z87.891 Personal history of nicotine dependence; Z88.4 Allergy status to anesthetic agent; Z88.1 Allergy status to other antibiotic agents; Z91.040 Latex allergy status; W19.XXXA Unspecified fall, initial encounter; H60.92 Unspecified otitis externa, left ear; F03.90 Unspecified dementia, unspecified severity, without behavioral disturbance, psychotic disturbance, mood disturbance, and anxiety; Z20.828 Contact with and (suspected) exposure to other viral communicable diseases; E83.42 Hypomagnesemia
CPT/HCPCS: 99222-AI; 99231-AI; 99232-AI; 99233-AI; 99239; J0133; J1650; J3370; J3475; J7030; J7050; J7131; Q9967

== ENCOUNTER → 2020-04-09 | Outpatient (CLI) | payer MEDICARE, BC ==
[~2020-04-09] MED LIST changes: +CELEXA10 MG PO; +CIPRODEX OT; +MICARDIS40 MG PO; +TYLENOL 325MG325 MG PO; +VALTREX1 GM PO
== END ==
LOC: COL.RAD 13:00
DX: S12.101A Unspecified nondisplaced fracture of second cervical vertebra, initial encounter for closed fracture (principal); M47.812 Spondylosis without myelopathy or radiculopathy, cervical region; M48.02 Spinal stenosis, cervical region

== ENCOUNTER → 2020-10-23 | Outpatient (REF) | LOC: ZLAB.WCH 09:13 | DX: Z01.89 Encounter for other specified special examinations (principal) ==